=== PATIENT | male | born 1965 | race Caucasian/White ===

== ENCOUNTER 2018-10-01 11:40 | Emergency (ER) | payer OTHER ==
--- NOTE | 2018-10-01 11:43 | ED Physician Documentation ---
General Adult - HISTORIAN Historian: patient - HPI Stated Complaint: left hand thumb pain after striking with hammer Chief Complaint: Hand Injury Onset: hours (1) Timing: still present Severity: mild Further Comments: yes (She reports over one hour ago she hit her thumb with a hammer and she has had pain since. She did not take any OTC meds and rates her pain 10/10. She has decreased ROM with distal phalanx.) Last known Well Code/Unknown Code: Unknown - ROS CONST: no problems - PAST HX Past History: other (fibromyalgia ) Immunizations: UTD Allergies/Adverse Reactions: Allergies Allergy/AdvReac Type Severity Reaction Status Date / Time No Known Allergies Allergy Unverified 10/01/18 12:04 Home Medications: Ambulatory Orders Medication Instructions Recorded Albuterol Sulfate [Proair Hfa] 10/01/18 Buspirone HCl [Buspar] 10 mg PO 10/01/18 Calcium/D3/Mag Ox/Scheduling Specialist/Pierre/Zn 1 each PO 10/01/18 [Caltrate+D3 Plus Mineral Minis] FLUoxetine HCL [Prozac] 10 mg PO QD 10/01/18 Gabapentin 10/01/18 Pantoprazole Sodium 40 mg PO 10/01/18 Prazosin HCl 10/01/18 Quetiapine Fumarate 10/01/18 Sucralfate [Carafate] 10/01/18 - SOCIAL HX Smoking History: cigarettes Alcohol Use: none Drug Use: none - FAMILY HX Family History: No - REVIEWED ASSESSMENTS Nursing Assessment Reviewed: Yes Vitals Reviewed: Yes ED Results Lab/Radiology - Radiology Radiology Impressions: Exam: Left hand. History: Pain at 1st digit after being struck with hammer. PA, lateral and oblique view of the left hand are submitted. A lobulated cystic structure at the distal phalanx of the 1st digit is noted. There is some cortical step-off noted at the site suggestive of a pathologic fracture. No other signs of fracture or dislocation is seen. Soft tissue swelling over the hand is noted. Impression: Lobulated cyst noted at the 1st distal phalanx. Pathologic fracture through this structure is suspected. Electronically signed on Oct 01, 2018 1:02:39 PM CDT by: Nikolai Helm General Adult Physical Exam - PHYSICAL EXAM GENERAL APPEARANCE: no distress EENT: eye inspection normal, no signs of dehydration NECK: normal inspection RESPIRATORY: no resp distress, chest non-tender, breath sounds normal CVS: reg rate & rhythm, heart sounds normal, equal pulses ABDOMEN: soft, normal bowel sounds BACK: normal inspection SKIN: warm/dry, normal color, other (left thumb with mild swelling - Pulses + sensation + cap refill + ) EXTREMITIES: non-tender NEURO: oriented X3 Discharge Clincal Impression: Pain of left thumb Referrals: Primary Doctor,No [Primary Care Provider] - 2 Days Comments: 1. Keep splint in place for comfort 2. OTC meds as directed as needed for pain 3. Ice for comfort 4. See PCP In 2-4 days 5. Return to ER for any increasing concerns Condition: Stable Disposition: 01 HOME, SELF-CARE Decision to Admit: NO Date of Decison to Admit: 10/01/18 Decision Time: 13:14
[2018-10-01] MEDS: KETOROLAC TROMETHAMINE 60 MG/2 ML VIAL IM ONE (13:10)
--- NOTE | 2018-10-01 13:37 | Diagnostic Imaging Report ---
DANIEL CARRION [facility] [address] [facility] [address] [id number] Report Submission Date: Oct 01, 2018 1:02:39 PM CDT Patient Study Name: BHUMI KITCHEN Date: Oct 01, 2018 12:14:30 PM CDT Modality Type: DX Gender: M Description: HAND 3 VIEWS OR MORE : 67 Institution: [facility] Physician: DANIEL CARRION Exam: Left hand. History: Pain at 1st digit after being struck with hammer. PA, lateral and oblique view of the left hand are submitted. A lobulated cystic structure at the distal phalanx of the 1st digit is noted. There is some cortical step-off noted at the site suggestive of a pathologic fracture. No other signs of fracture or dislocation is seen. Soft tissue swelling over the hand is noted. Impression: Lobulated cyst noted at the 1st distal phalanx. Pathologic fracture through this structure is suspected. Electronically signed on Oct 01, 2018 1:02:39 PM CDT by: Nikolai DORAN
[2018-10-01 13:38] VITALS: BP 138/80
== END 2018-10-01 13:33 | disposition home or self-care (01) ==
LOC: ED 11:40
DX: M85.642 Other cyst of bone, left hand (principal); S69.92XA Unspecified injury of left wrist, hand and finger(s), initial encounter; W22.8XXA Striking against or struck by other objects, initial encounter; Y99.8 Other external cause status
CPT/HCPCS: 73130; 96372; 99283; 99284; J1885